=== PATIENT | male | born 1970 | race Caucasian/White ===

== ENCOUNTER 2021-08-17 20:00 | Emergency (ER) | payer BC ==
[2021-08-17] MEDS ORDERED: Ondansetron 4 MG Tab.DIS PO ONE (21:13)
[2021-08-17] MEDS ORDERED: Take Home: Ondansetron 4 MG Tab.DIS, 5 Tab Pack PO ONE (21:13)
== END 2021-08-17 21:40 | disposition home or self-care (01) ==
LOC: VM.ED 20:00
DX: U07.1 COVID-19 (principal); R11.0 Nausea; E66.9 Obesity, unspecified; Z68.42 Body mass index [BMI] 45.0-49.9, adult
CPT/HCPCS: 99283; A9270-GY; Q0162

== ENCOUNTER 2023-08-08 18:40 | Emergency (ER) | payer BC ==
[2023-08-08] MEDS ORDERED: Albuterol/Ipratropium 3.0-0.5 MG/3 ML Neb Soln NEB ONE (21:00)
[2023-08-08 21:27] LABS: CORONAVIRUS COVID-19 NAA NEGATIVE (NEGATIVE); INFLUENZA B NAA NEGATIVE (NEGATIVE); RESPIRATORY SYNCYTIAL VIR NAA NEGATIVE (NEGATIVE)
[2023-08-08] MEDS ORDERED: Oseltamivir 75 MG Cap PO ONE (21:29)
[2023-08-08] MEDS ORDERED: Take Home: Albuterol 18 GM Inhaler, 1 Inhaler Pack INH PRN (21:29)
[2023-08-08] MEDS ORDERED: Acetaminophen 500 MG Tab PO ONE (21:35)
[2023-08-15 08:47] LABS: INFLUENZA A NAA POSITIVE (NEGATIVE)
== END 2023-08-08 21:45 | disposition home or self-care (01) ==
LOC: VM.ED 18:40
DX: J10.1 Influenza due to other identified influenza virus with other respiratory manifestations (principal); E66.9 Obesity, unspecified; Z68.42 Body mass index [BMI] 45.0-49.9, adult; Z20.822 Contact with and (suspected) exposure to COVID-19; Z90.49 Acquired absence of other specified parts of digestive tract
CPT/HCPCS: 0241U; 71045; 94640; 99284; 99285; A9270-GY; J7620-GY